=== PATIENT | female | born 1955 | race Caucasian/White ===

== ENCOUNTER 2017-12-06 15:49 | Observation (INO) | payer SELFPAY ==
[~2017-12-06] VITALS: Ht 165.1 cm; Wt 84.7 kg
[~2017-12-06 15:49] MED LIST: ASPI81TA82 PO; ENAL10TA7 PO; FIORINAL2 PO; METO25 PO; OMEP40CA; SUMA20SP; [UNRECOGNIZED DRUG - CODE]
[2017-12-06 17:15] VITALS: BP 150/96; PULSE 98; RESP 16; O2SAT 99
--- NOTE | 2017-12-06 17:22 | PD ---
HPI Chief Complaint: Chest Pain Time Seen by Provider: 17:19 Travel History International Travel<30 days: No Contact w/Intl Traveler<30days: No Traveled to known affect area: No History of Present Illness HPI 62-year-old female patient with history of hypertension, gastroesophageal reflux , presents to the ER today for 2 days history of substernal chest discomfort which she currently rates it a 2 out of 10, states that she feels like there is a fullness there, feels like she is going to burp. However, she denies any nausea, vomiting, diarrhea, or any other symptoms. She states that she had her blood pressure checked and was 200 systolic. She does not know of any exacerbating or relieving factors. She denies being more stressed than usual. Modifying Factors: None Associated Signs & Symptoms: Chest discomfort and elevated blood pressure Risk Factors: History of hypertension PFSH Social History Tobacco Use: No Allergies-Medications (Allergen,Severity, Reaction): Coded Allergies: No Known Allergies (Verified Adverse Reaction, Unknown, 12/06/17) Reported Meds & Prescriptions Reported Meds & Active Scripts Active Reported Fish Oil 1000 mg ([place]-3 Fatty Acids) 300 Mg-1,000 Mg Cap 1,000 Mg PO BID Amitriptyline (Amitriptyline HCl) 50 Mg Tab 50 Mg PO HS Omeprazole 20 Mg Tab 20 Mg PO DAILY Aspirin Adult Low Strength (Aspirin) 81 Mg Tabdr 81 Mg PO DAILY Lisinopril 20 Mg Tab 20 Mg PO DAILY Review of Systems Except as stated in HPI: all other systems reviewed are Neg Physical Exam Narrative GENERAL: Well-developed elderly female patient currently in mild distress. Awake and oriented 3. Appears anxious. SKIN: Focused skin assessment warm/dry. HEAD: Atraumatic. Normocephalic. EYES: Pupils equal and round. No scleral icterus. No injection or drainage. ENT: No nasal bleeding or discharge. Mucous membranes pink and moist. NECK: Trachea midline. No JVD. CARDIOVASCULAR: Regular rate and rhythm. No murmur appreciated. RESPIRATORY: No accessory muscle use. Clear to auscultation. Breath sounds equal bilaterally. GASTROINTESTINAL: Abdomen soft, non-tender, nondistended. Hepatic and splenic margins not palpable. MUSCULOSKELETAL: No obvious deformities. No clubbing. No cyanosis. No edema. NEUROLOGICAL: Awake and alert. No obvious cranial nerve deficits. Motor grossly within normal limits. Normal speech. PSYCHIATRIC: Appropriate mood and affect; insight and judgment normal. Data Data Last Documented VS Vital Signs Date Time Temp Pulse Resp B/P (MAP) Pulse Ox O2 Delivery O2 Flow Rate FiO2 12/06/17 17:36 98 16 133/64 (87) 130/66 (87) 12/06/17 17:33 100 Nasal Cannula 2.00 Orders Orders Electrocardiogram (12/06/17 17:19) Ckmb (Isoenzyme) Profile (12/06/17 17:19) Complete Blood Count With Diff (12/06/17 17:19) Comprehensive Metabolic Panel (12/06/17 17:19) Magnesium (Mg) (12/06/17:19) Prothrombin Time / Inr (Pt) (12/06/17:19) Act Partial Throm Time (Ptt) (12/06/17:19) Troponin I (12/06/17:19) Lipase (12/06/17 17:19) Ecg Monitoring (12/06/17:19) Bilateral Bp Monitoring (12/06/17:19) Iv Access Insert/Monitor (12/06/17 17:19) Oximetry (12/06/17 17:19) Oxygen Administration (12/06/17 17:19) Sodium Chloride 0.9% Flush (Ns Flush) (12/06/17 17:30) Chest, Pa & Lat (12/06/17 17:19) Labs Laboratory Tests Test 12/06/17 17:20 White Blood Count 13.1 TH/MM3 Red Blood Count 4.55 MIL/MM3 Hemoglobin 13.9 GM/DL Hematocrit 40.9 % Mean Corpuscular Volume 89.9 FL Mean Corpuscular Hemoglobin 30.6 PG Mean Corpuscular Hemoglobin Concent 34.0 % Red Cell Distribution Width 12.7 % Platelet Count 295 TH/MM3 Mean Platelet Volume 6.8 FL Neutrophils (%) (Auto) 85.1 % Lymphocytes (%) (Auto) 11.3 % Monocytes (%) (Auto) 2.9 % Eosinophils (%) (Auto) 0.3 % Basophils (%) (Auto) 0.4 % Neutrophils # (Auto) 11.2 TH/MM3 Lymphocytes # (Auto) 1.5 TH/MM3 Monocytes # (Auto) 0.4 TH/MM3 Eosinophils # (Auto) 0.0 TH/MM3 Basophils # (Auto) 0.0 TH/MM3 CBC Comment DIFF FINAL Differential Comment Prothrombin Time 10.7 SEC Prothromb Time International Ratio 1.1 RATIO Activated Partial Thromboplast Time 25.1 SEC Blood Urea Nitrogen 10 MG/DL Creatinine 1.06 MG/DL Random Glucose 114 MG/DL Total Protein 7.7 GM/DL Albumin 3.9 GM/DL Calcium Level 9.0 MG/DL Magnesium Level 2.0 MG/DL Alkaline Phosphatase 74 U/L Aspartate Amino Transf (AST/SGOT) 66 U/L Alanine Aminotransferase (ALT/SGPT) 127 U/L Total Bilirubin 0.3 MG/DL Sodium Level 138 MEQ/L Potassium Level 3.8 MEQ/L Chloride Level 102 MEQ/L Carbon Dioxide Level 24.4 MEQ/L Anion Gap 12 MEQ/L Estimat Glomerular Filtration Rate 53 ML/MIN Total Creatine Kinase 86 U/L Troponin I LESS THAN 0.02 NG/ML Lipase 101 U/L MDM Medical Decision Making Medical Screen Exam Complete: Yes Emergency Medical Condition: Yes Medical Record Reviewed: Yes Interpretation(s) EKG shows normal sinus rhythm at a rate of 99 bpm. No signs of acute ST elevations. There is nonspecific T-wave depressions notable in the inferior leads. Laboratory Tests Test 12/06/17 17:20 White Blood Count 13.1 TH/MM3 (4.0-11.0) Mean Platelet Volume 6.8 FL (7.0-11.0) Neutrophils (%) (Auto) 85.1 % (16.0-70.0) Neutrophils # (Auto) 11.2 TH/MM3 (1.8-7.7) Creatinine 1.06 MG/DL (0.50-1.00) Random Glucose 114 MG/DL (74-106) Aspartate Amino Transf (AST/SGOT) 66 U/L (15-37) Alanine Aminotransferase (ALT/SGPT) 127 U/L (10-53) Estimat Glomerular Filtration Rate 53 ML/MIN (>89) Troponin I LESS THAN 0.02 NG/ML Last 24 hours Impressions Chest X-Ray 12/06/17 7906 Signed Impressions: Service Date/Time: Wednesday, December 06, 2017 17:53 - CONCLUSION: 1. No acute findings. No effusion or pneumothorax. Cristian Jackson MD Differential Diagnosis Chest pains: Hypertensive urgency versus ACS versus dysrhythmias versus anxiety attack versus gastritis Narrative Course Cardiac enzymes are negative. EKG did not show any signs of acute dysrhythmias or ST elevations or depressions. Chest x-ray was fairly unremarkable. Vital signs are stable in the ER. My plan would be to admit her for further evaluation and a chest pain center. Diagnosis Primary Impression: Chest pain Admitting Information Admitting Physician Requests: Admit Quinn Bui MD Dec 06, 2017 17:22
[2017-12-06 17:29] VITALS: BP 150/96; PULSE 98; RESP 16; O2SAT 100
[2017-12-06] MEDS ORDERED: SODIUM CHLORIDE 0.9% FLUSH 10 ML FLUSH IVF PRN (17:30)
[2017-12-06 17:33] VITALS: BP 150/96; PULSE 98; RESP 16; O2SAT 99
[2017-12-06 17:36] VITALS: BP_SYST 130; BP_SYST 133; BP_DIAS 64; BP_DIAS 66; PULSE 98; RESP 16
[2017-12-06 17:49] LABS: AUTOMATED NEUTROPHIL # 11.2 TH/MM3 (1.8-7.7); BASOPHIL % 0.4 % (0.0-2.0); EOSINOPHIL % 0.3 % (0.0-4.0); HEMATOCRIT 40.9 % (35.0-46.0); HEMOGLOBIN 13.9 GM/DL (11.6-15.3); LYMPH % 11.3 % (9.0-44.0); LYMPHOCYTE # 1.5 TH/MM3 (1.0-4.8); MEAN CELL VOLUME 89.9 FL (80.0-100.0); MEAN CORPUSCULAR HEMOGLOBIN 30.6 PG (27.0-34.0); MEAN PLATELET VOLUME 6.8 FL (7.0-11.0); MONO % 2.9 % (0.0-8.0); MONOCYTE # 0.4 TH/MM3 (0-0.9); NEUT % 85.1 % (16.0-70.0); PLATELET COUNT 295 TH/MM3 (150-450); RED BLOOD COUNT 4.55 MIL/MM3 (4.00-5.30); RED CELL DISTRIBUTION WIDTH 12.7 % (11.6-17.2); WHITE BLOOD COUNT 13.1 TH/MM3 (4.0-11.0)
[2017-12-06 17:58] LABS: INTERNATIONAL NORMALIZED RATIO 1.1 RATIO; PROTHROMBIN TIME - PATIENT 10.7 SEC (9.8-11.6)
[2017-12-06 18:12] LABS: ALBUMIN 3.9 GM/DL (3.4-5.0); AST (GOT) 66 U/L (15-37); BICARBONATE 24.4 MEQ/L (21.0-32.0); BLOOD UREA NITROGEN 10 MG/DL (7-18); CHLORIDE 102 MEQ/L (98-107); CREATININE 1.06 MG/DL (0.50-1.00); GLOMERULAR FILTRATION RATE 53 ML/MIN (>89); GLUCOSE,RANDOM 114 MG/DL (74-106); SODIUM (NA) 138 MEQ/L (136-145)
--- NOTE | 2017-12-06 18:17 | RADRPT ---
EXAM DATE/TIME: 12/06/2017 17:53 [facility] COMPARISON: No previous studies available for comparison. INDICATIONS : Short of breath. MEDICAL HISTORY : None. SURGICAL HISTORY : None. ENCOUNTER: Initial ACUITY: 1 day PAIN SCORE: 0/10 LOCATION: Bilateral chest FINDINGS: PA and lateral views of the chest demonstrate the lungs to be symmetrically aerated without evidence of mass, infiltrate or effusion. The cardiomediastinal contours are unremarkable. Osseous structure s are intact. CONCLUSION: 1. No acute findings. No effusion or pneumothorax. Cristian Jackson MD on December 06, 2017 at 18:13 Board Certified Radiologist. This report was verified electronically.
[2017-12-06 18:18] LABS: ALKALINE PHOSPHATASE 74 U/L (45-117); ALT (GPT) 127 U/L (10-53); TOTAL BILIRUBIN ADULT 0.3 MG/DL (0.2-1.0); TOTAL PROTEIN 7.7 GM/DL (6.4-8.2); TROPONIN I LESS THAN 0.02 NG/ML (0.02-0.05)
[2017-12-06] MEDS ORDERED: OMEP20TA93 PO (18:34)
[2017-12-06] MEDS ORDERED: FISH100020 PO (18:34)
[2017-12-06] MEDS ORDERED: AMIT50TA3 PO (18:34)
[2017-12-06] MEDS ORDERED: LISI-515 PO (18:34)
[2017-12-06] MEDS ORDERED: ASPI81TA16 PO (18:34)
[2017-12-06] MEDS ORDERED: IOHEXOL 350 MG/ML 100 ML BTL (for Cath Lab) OTHER ONE (18:36)
[2017-12-06] MEDS ORDERED: SODIUM CHLORIDE 0.9% FLUSH 10 ML FLUSH IV FLUSH PRN (18:45)
[2017-12-06 21:39] VITALS: BP 131/81; PULSE 90; RESP 18; TEMP 97.9; O2SAT 93
[2017-12-06 21:56] VITALS: PULSE 88
[2017-12-06 22:10] LABS: TROPONIN I LESS THAN 0.02 NG/ML (0.02-0.05)
[2017-12-06] MEDS: SODIUM CHLORIDE 0.9% FLUSH 10 ML FLUSH IV FLUSH SCH (23:26)
[2017-12-07] VITALS (7 sets, daily range): BP systolic 108–155; BP diastolic 69–84; PULSE 66–86; RESP 18; TEMP 97.6–98.4; O2SAT 95–99
[2017-12-07 00:24] LABS: TROPONIN I LESS THAN 0.02 NG/ML (0.02-0.05)
[2017-12-07] MEDS ORDERED: AMITRIPTYLINE HCL 50 MG TAB PO SCH (01:00)
[2017-12-07] MEDS ORDERED: PRAVASTATIN SOD 40 MG TAB PO SCH (09:00)
--- NOTE | 2017-12-07 09:08 | HHI.HP ---
HPI Primary Care Physician Duke Hernandez MD Chief Complaint Chest pain History of Present Illness This is a 62-year-old female that presents to ED complaining of 4 days of intermittent burning chest discomfort she points to the substernal/epigastric region. First episode was 4 days ago. It woke her from her sleep at 1 in the morning. She took a Gas-X, did a lot of belching and then the discomfort resolved within 20 minutes. 2 days ago she has felt very tired and achy. Yesterday around 1:00 in the afternoon he developed a dull ache in the center of her chest and felt very hot and sweaty. Checked her blood pressure was 203/ 118. She went to her PCP office which is Dr. Hernandez who advised her to come to the ED. She noticed that if she drinks water the symptoms were improved. She has history of heartburn but states this does not really feel like her typical heartburn. Cannot recall ever having a stress test. Denies recent illness. Denies fevers or chills. Review of Systems General: Patient denies fevers, chills, and recent travel. HEENT: Patient denies headache, sore throat, difficulty swallowing. Cardiovascular: Has the chest discomfort as mentioned above. Denies sensation of heart beating rapidly or irregularly. No syncope. She states she broke out into a sweat yesterday. Respiratory: Denies shortness of breath or inspirational chest discomfort. Denies coughing wheezing or hemoptysis. GI: Patient denies nausea, vomiting, diarrhea, abdominal pain, bloody stools. She was belching. Musculoskeletal: Patient denies joint pain or edema. Denies calf pain or edema. Neurovascular: Patient denies numbness, tingling, weakness in extremities. Denies headache. Endocrine: Denies polyuria and polydipsia. Hematologic: Denies easy bruising. Skin: Denies rash or itching. Past Family Social History Allergies: Coded Allergies: No Known Allergies (Verified Allergy, Unknown, 12/07/17) Past Medical History Hypertension GERD and anxiety. Past Surgical History Noncontributory. Reported Medications Reported Meds & Active Scripts Active Reported Fish Oil 1000 mg ([place]-3 Fatty Acids) 300 Mg-1,000 Mg Cap 1,000 Mg PO BID Amitriptyline (Amitriptyline HCl) 50 Mg Tab 50 Mg PO HS Omeprazole 20 Mg Tab 20 Mg PO DAILY Aspirin Adult Low Strength (Aspirin) 81 Mg Tabdr 81 Mg PO DAILY Lisinopril 20 Mg Tab 20 Mg PO DAILY Active Ordered Medications Current Medications Medications (Trade) Dose Ordered Sig/Edgar Route Start Time Stop Time Status Last Admin (NS Flush) 2 ml UNSCH PRN IV FLUSH 12/06/17 18:45 (NS Flush) 2 ml BID IV FLUSH 12/06/17 21:00 12/06/17 23:26 (Prinivil) 20 mg DAILY PO 12/07/17 09:00 (Protonix) 20 mg DAILY PO 12/07/17 09:00 Family History Denies family history of CAD. Social History Quit smoking 1990. States she smoked about one third pack of cigarettes daily for 2 years. Denies alcohol or illicit drug use. Physical Exam Vital Signs Vital Signs Date Time Temp Pulse Resp B/P (MAP) Pulse Ox O2 Delivery O2 Flow Rate FiO2 12/07/17 08:45 98.1 82 18 131/84 (100) 95 12/07/17 04:47 98.4 18 110/71 (84) 99 12/07/17 00:01 78 12/06/17 21:56 88 12/06/17 21:39 97.9 90 18 131/81 (98) 93 12/06/17 18:48 Nasal Cannula 2.00 12/06/17 17:36 98 16 133/64 (87) 130/66 (87) 12/06/17 17:33 100 Nasal Cannula 2.00 12/06/17 17:33 98 16 150/96 (114) 99 Nasal Cannula 2.00 12/06/17 17:29 98 16 100 Nasal Cannula 2.00 12/06/17 17:29 98 16 150/96 (114) 100 Nasal Cannula 2.00 12/06/17 17:18 99 Nasal Cannula 2.00 12/06/17 17:15 98 16 150/96 (114) 99 Physical Exam GENERAL: This is a well-nourished, well-developed patient, in no apparent distress. Patient speaks in clear complete sentences. Patient is pleasant. HEENT: Head is atraumatic and normocephalic. Neck is supple without lymphadenopathy and trachea is midline. No JVD or carotid bruits. CARDIOVASCULAR: Regular rate and rhythm without murmurs, gallops, or rubs. RESPIRATORY: Clear to auscultation. Breath sounds equal bilaterally. No wheezes , rales, or rhonchi. Chest wall is nontender. No use of accessory muscles. GASTROINTESTINAL: Abdomen is nontender, nondistended. Abdomen soft. No obvious pulsatile mass or bruit. No CVA tenderness. Strong femoral pulses bilaterally. Normal bowel sounds in all quadrants. MUSCULOSKELETAL: Patient is moving upper and lower extremities freely. No calf tenderness or edema, no Homans sign. Strong pulses in upper and lower extremities. NEUROLOGICAL: Patient is alert and oriented. Cranial nerves 2-12 are grossly intact. No focal deficits and speech is clear. SKIN: No rash and turgor is normal. Laboratory Laboratory Tests Test 12/06/17 17:20 12/06/17 21:00 12/06/17 23:20 White Blood Count 13.1 Red Blood Count 4.55 Hemoglobin 13.9 Hematocrit 40.9 Mean Corpuscular Volume 89.9 Mean Corpuscular Hemoglobin 30.6 Mean Corpuscular Hemoglobin Concent 34.0 Red Cell Distribution Width 12.7 Platelet Count 295 Mean Platelet Volume 6.8 Neutrophils (%) (Auto) 85.1 Lymphocytes (%) (Auto) 11.3 Monocytes (%) (Auto) 2.9 Eosinophils (%) (Auto) 0.3 Basophils (%) (Auto) 0.4 Neutrophils # (Auto) 11.2 Lymphocytes # (Auto) 1.5 Monocytes # (Auto) 0.4 Eosinophils # (Auto) 0.0 Basophils # (Auto) 0.0 CBC Comment DIFF FINAL Differential Comment Prothrombin Time 10.7 Prothromb Time International Ratio 1.1 Activated Partial Thromboplast Time 25.1 Blood Urea Nitrogen 10 Creatinine 1.06 Random Glucose 114 Total Protein 7.7 Albumin 3.9 Calcium Level 9.0 Magnesium Level 2.0 Alkaline Phosphatase 74 Aspartate Amino Transf (AST/SGOT) 66 Alanine Aminotransferase (ALT/SGPT) 127 Total Bilirubin 0.3 Sodium Level 138 Potassium Level 3.8 Chloride Level 102 Carbon Dioxide Level 24.4 Anion Gap 12 Estimat Glomerular Filtration Rate 53 Total Creatine Kinase 86 95 90 Troponin I LESS THAN 0.02 LESS THAN 0.02 LESS THAN 0.02 Lipase 101 Result Diagram: 12/06/17 1720 12/06/17 1720 Imaging Last 48 hours Impressions Chest X-Ray 12/06/17 1719 Signed Impressions: Service Date/Time: Wednesday, December 06, 2017 17:53 - CONCLUSION: 1. No acute findings. No effusion or pneumothorax. Cristian Jackson MD Course EKGs a sinus rhythm with inferior and anterolateral T-wave changes. No significant ST segment depressions or elevations. Caprini VTE Risk Assessment Caprini VTE Risk Assessment: Mod/High Risk (score >= 2) Caprini Risk Assessment Model Point Value = 1 Point Value = 2 Point Value = 3 Point Value = 5 Age 41-60 Minor surgery BMI > 25 kg/m2 Swollen legs Varicose veins or History of unexplained or recurrent spontaneous Oral contraceptives or hormone replacement Sepsis (< 1 month) Serious lung disease, including pneumonia (< 1 month) Abnormal pulmonary function Acute myocardial infarction Congestive heart failure (< 1 month) History of inflammatory bowel disease Medical patient at bed rest Age 61-74 Arthroscopic surgery Major open surgery (> 45 min) Laparoscopic surgery (> 45 min) Malignancy Confined to bed (> 72 hours) Immobilizing plaster cast Central venous access Age >= 75 History of VTE Family history of VTE Factor V Leiden Prothrombin [id number] Lupus anticoagulant Anticardiolipin antibodies Elevated serum homocysteine Heparin-induced thrombocytopenia Other congenital or acquired thrombophilia Stroke (< 1 month) Elective arthroplasty Hip, pelvis, or leg fracture Acute spinal cord injury (< 1 month) Prophylaxis Regimen Total Risk Factor Score Risk Level Prophylaxis Regimen 0-1 Low Early ambulation 2 Moderate Order ONE of the following: *Sequential Compression Device (SCD) *Heparin 5000 units SQ BID 3-4 Higher Order ONE of the following medications: *Heparin 5000 units SQ TID *Enoxaparin/Lovenox 40 mg SQ daily (WT < 150 kg, CrCl > 30 mL/min) *Enoxaparin/Lovenox 30 mg SQ daily (WT < 150 kg, CrCl > 10-29 mL/min) *Enoxaparin/Lovenox 30 mg SQ BID (WT < 150 kg, CrCl > 30 mL/min) AND/OR *Sequential Compression Device (SCD) 5 or more Highest Order ONE of the following medications: *Heparin 5000 units SQ TID (Preferred with Epidurals) *Enoxaparin/Lovenox 40 mg SQ daily (WT < 150 kg, CrCl > 30 mL/min) *Enoxaparin/Lovenox 30 mg SQ daily (WT < 150 kg, CrCl > 10-29 mL/min) *Enoxaparin/Lovenox 30 mg SQ BID (WT < 150 kg, CrCl > 30 mL/min) AND *Sequential Compression Device (SCD) Assessment and Plan Assessment and Plan * Chest pain: Her symptoms appear atypical. She has had serial cardiac enzymes and EKGs for ruling out purposes. She was seen by Dr. Mj Chakraborty of cardiology and the chest pain center and will undergo a Aubrey protocol ETT. She will be discharged home if her stress test is nonischemic with instructions to follow-up with PCP. Return to ED for interval issues. * Hypertension: Resume medication. Her blood pressure has improved since being in the hospital. * GERD: Continue medication. Patient is stable at this time. She is agreeable to this plan. Garett Garibay Dec 07, 2017 09:08
[2017-12-07] MEDS: PANTOPRAZOLE SOD 20 MG DELAYED RELEASE TAB PO SCH (11:50)
[2017-12-07] MEDS: LISINOPRIL 20 MG TAB PO SCH (11:50)
[2017-12-07] MEDS: SODIUM CHLORIDE 0.9% FLUSH 10 ML FLUSH IV FLUSH SCH ×2 (11:50→23:46)
--- NOTE | 2017-12-07 11:58 | EKG ---
Date Performed: 12/07/2017 Time Performed: 01:16:15 PTAGE: 62 years EKG: Sinus rhythm MODERATE T-WAVE ABNORMALITY, CONSIDER ANTERIOR ISCHEMIA ABNORMAL ECG PREVIOUS TRACING : 12/06/2017 21.47 Since previous tracing, no significant change noted DOCTOR: Mj Chakraborty Interpretating Date/Time 12/07/2017 11:57:17
--- NOTE | 2017-12-07 11:58 | EKG ---
Date Performed: 12/06/2017 Time Performed: 21:47:38 PTAGE: 62 years EKG: Sinus rhythm PROBABLE INFERIOR MYOCARDIAL INFARCTION MODERATE T-WAVE ABNORMALITY, CONSIDER ANTERIOR ISCHEMIA ABNO RMAL ECG PREVIOUS TRACING : 12/06/2017 17.12 Since previous tracing, no significant change noted DOCTOR: Mj Chakraborty Interpretating Date/Time 12/07/2017 11:57:42
--- NOTE | 2017-12-07 12:00 | EKG ---
Date Performed: 12/06/2017 Time Performed: 17:12:16 PTAGE: 62 years EKG: Sinus rhythm ABNORMAL ECG PREVIOUS TRACING : 10/10/2007 07.51 Since previous tracing, no significant change noted DOCTOR: Mj Chakraborty Interpretating Date/Time 12/07/2017 11:59:05
--- NOTE | 2017-12-07 12:19 | RADRPT ---
EXAM DATE/TIME: 12/07/2017 10:04 [facility] COMPARISON: No previous studies available for comparison. INDICATIONS : Substernal chest pain with diaphoresis. Angina DOSE: 25.9 mCi Tc99m Myoview at stress 8.8 mCi Tc99m Myoview at rest REST HEART RATE: 117 BPM TARGET HEART RATE: 135 BPM MAX HEART RATE: 145 BPM REST BLOOD PRESSURE: 150/82 mmHg MAX BLOOD PRESSURE: 164/88 mmHg EJECTION FRACTION: > 70% MEDICAL HISTORY : Hypertension. Gastroesophageal reflux disease. SURGICAL HISTORY : Hysterectomy. Lumpectomy. ENCOUNTER: Initial ACUITY: 3 days PAIN SCALE: 6/10 LOCATION: Substernal chest TECHNIQUE: The patient underwent upright treadmill exercise in the chest pain center. Continuous ECG tracing wa s monitored during stress. Gated SPECT imaging was performed after stress, and conventional SPECT im aging was performed at rest. The examination was performed on a SPECT/CT scanner, both attenuation-c orrected and non-corrected datasets were reviewed. FINDINGS: DISTRIBUTION: The maximum perfused segment at stress is in the anterior wall. PERFUSION STUDY: Small area of mildly reversible decreased perfusion in the lateral apical region. GATED STUDY: There is intact wall motion and thickening without hypokinetic or dyskinetic segments. CONCLUSION: Small lateral apical perfusion abnormality with possible mild redistribution. RISK CATEGORY: Low (<1% Annual Mortality Rate) Maged Anaya MD on December 07, 2017 at 12:14 Board Certified Radiologist. This report was verified electronically.
[2017-12-07] MEDS ORDERED: SODIUM CHLOR 0.9% 1000 ML INJ 1,000 ML IV SCH (12:56)
[2017-12-07] MEDS: METOPROLOL TARTRATE 25 MG TAB PO SCH ×2 (13:26→23:46)
[2017-12-07] MEDS: ASPIRIN 325 MG TAB PO SCH (15:08)
[2017-12-07] MEDS ORDERED: MIDAZOLAM HCL 5 MG/5 ML VIAL ONE (16:44)
[2017-12-07] MEDS ORDERED: HEPARIN-NS/PF FLUSH BAG 2,000 ML IV FLUSH ONE (16:44)
--- NOTE | 2017-12-07 16:52 | TR ---
Date Performed: 12/07/2017 Time Performed: 10:45:42 DOCTOR: Mj Chakraborty DRUG LIST: CLINICAL HISTORY: REASON FOR TEST: REASON FOR ENDING: OBSERVATION: CONCLUSION: NUC ETT JESUS PROTOCOL. NO CP. PATIENT WAS SOB.Maximum AT=614 % Max HR Achieved=91 .0% Maximum SE=213/82 COMMENTS: Patient exercised using the Jesus protocol. No electrocardiographic changes were seen to suggest ischemia. Hemodynamic response to exercise was normal. No significant arrhythmia was prese nt.
--- NOTE | 2017-12-07 17:34 | CATHPROC ---
[facility] HIS Report Study Information Study Number Admission Scheduled Start Study Start [id number] Dec 06 2017 6:35PM 12/07/2017 Dec 07 2017 4:30PM Study Type Marana Service Left/Possible PCI Cardiac Catheterization Admit Source Facility Department Emergency department [facility] - Director Marketing Analytics Physician and Clinical Staff Initial Ashlyn Evans Nut Roaster Ilene Patten,RN Other Viri Medina RCIS TECH2 Recorder Adelaida Henry RT(R) (BS) Scrub Ronaldo Pierre RCIS(BS) Procedures Performed Procedure Location (Site) Vessel Name Angiogram LV LV Ventricle Coronary Angiograms LCA Left Coronary Coronary Angiograms RCA Right Coronary L Heart Cath Equipment Time State'S Attorney Description Size Mfg Part Number Used/Scraped TRANSDUCER, FUNMILAYO [id number] 16:38 [employer] * Used W/STOCKCOCK *[id number] 16:50 AirWatch AR MOD CATHETER FR 5 [id number] Used [id number] *[id number] *[id number] 16:38 MEDLINE [employer] PACK, CCL CUSTOM * Used *[id number] 16:38 INBEP PACER PEN, SKIN DUAL W/ RULER * Used *[id number] 16:38 [employer] WIRE, 3MMJ .035 180CM 180CM Used *[id number] PROBE COVER, STERILE [id number] 16:38 [employer] * Used ULTRASOUND W/ GEL *[id number] 16:38 NAMIC MANIFOLD, 4 PORT * Used *[id number] 16:38 NAMIC TUBING, HIGH PRESSURE 48" 48" Used *[id number] 16:38 NYCOMED OMNIPAQUE, 350 MG, 150ML 150ML [id number] Used [id number] 16:38 ARNETT MEDICAL BLANKET,WARM AIR CCL * Used *[id number] 16:38 TEREliassen GroupO MEDICAL SHEATH, FR5 TERUMO (10CM) FR 5 Used *[id number] Equipment Model, Serial, Lot Number and Expiration Data Description Model Number Serial Number Lot Number Expiration Date AR MOD CATHETER [id number] 09-27-2019 History: Current Medications Medication Dosage/Unit Route Frequency Last Date/Time Taken LISINOPRIL Beta Eun ASA History: Allergies Allergy Reaction No Known Allergies History: Risk Factors Family History of Hypertension Dyslipidemia Previous ND Previous Heart Failure Premature CAD Yes No No No No Prior Valve Prior PCI Prior CABG Surgery No No No Cerebrovascular Peripheral Artery Chronic Lung On Dialysis Diabetes Disease Disease Disease No No No No No History: Symptoms/Diagnosis Selection Items Chest pain History: Stress Tests Stress or Imaging Studies Performed Yes Standard Exercise Stress Test No Stress Echo No Stress Test SPECT Stress Test SPECT Result Stress Test SPECT Ischemia Risk/Extent Yes Positive Intermediate Stress Test CMR No Cardiac CTA Coronary Calcium Score No No History: Other Disease Selection Items Gerd History: Other Current Smoker Method Quit Packs a Day Years Used Pack Years No Cigarettes 27 Years Ago 1 2 2 Labs Hgb (g/dl) Hct (%) RBC (MIL/MM3) WBC (l/cumm) Platelets (thousands) 11.60-17.00 35.00-51.00 4.00-5.90 4.00-11.00 150.00-450.00 13.9 40.9 4.5 13.1 295 Glucose (mg/dl) BUN (mg/dl) Creatinine (mg/dl) BUN:Creatinine (1:x) 74.00-106.00 7.00-18.00 0.50-1.30 10.00-20.00 114 10 1.0 10 Na (meq/l) K (meq/l) CO2 (mmol/L) Ca (mg/dl) 136.00-145.00 3.50-5.10 21.00-32.00 8.50-10.10 138 3.8 24.4 9 PT (sec) PTT (sec) INR (PTT:PT) 9.80-11.60 24.30-30.10 0.90-1.10 10.7 25.1 1.1 Troponin I (ng/ml) CPK (u/l) CPK-MB (ng/ML) 0.02-0.05 26.00-308.00 0.50-3.60 0.02 90 Not Drawn Medication Medication Total Dose (Bolus/Oral) Medication Total Dosage/Unit 1% XYLOCAINE 20 mL FENTANYL 100 mcg VERSED 5 mg Medications (Bolus/Oral) Medication Time Given Dosage/Unit Administered By Reason VERSED 12/07/2017 4:48:17 PM 2 mg Ilene Patten 2 mg VERSED given in lab by Ilene Patten RN in Left Antecubital via Peripheral IV. FENTANYL 12/07/2017 4:49:26 PM 50 mcg Hesher, Ilene 50 mcg FENTANYL given in lab by Ilene Patten RN in Left Antecubital via Peripheral IV. VERSED 12/07/2017 4:51:51 PM 2 mg Hesher, Ilene 2 mg VERSED given in lab by Ilene Patten RN in Left Antecubital via Peripheral IV. VERSED 12/07/2017 4:55:14 PM 1 mg Hesher, Ilene 1 mg VERSED given in lab by Ilene Patten RN in Left Antecubital via Peripheral IV. FENTANYL 12/07/2017 4:56:42 PM 25 mcg Melissaher, Ilene 25 mcg FENTANYL given in lab by Ilene Patten RN in Left Antecubital via Peripheral IV. 1% XYLOCAINE 12/07/2017 5:03:29 PM 20 mL Ashlyn Collins 20 mL 1% XYLOCAINE given in lab by Ashlyn Collins in Right Groin via Subcutaneous. FENTANYL 12/07/2017 5:06:10 PM 25 mcg Melissaher, Ilene 25 mcg FENTANYL given in lab by Ilene Patten RN in Left Antecubital via Peripheral IV. Medication (Drip) Medication Time Given Dosage/Unit Concentration/Unit Diluent (ml) Solutio n IV Solutions 12/07/2017 4:38:33 PM 0 mL (IV) 1000 NaCl .9 Patient arrived on IV Solutions in Left Antecubital via Peripheral IV. Pump/Drip Flow = 125 ml/hr usi ng NaCl .9. Initial Case Assessment Cardiovascular HR Rhythm NIBP Chest Pain 87 reg 133/75 0 Edema Present Skin color Skin None Normal Warm Dry Circulatory - Right Pulses Dorsalis Pedis Femoral 1 1 Scale (0,1,2,3,4,d) Circulatory - Left Pulses Dorsalis Pedis Femoral 1 1 Scale (0,1,2,3,4,d) Circulatory - Lower Extremities Color Lower Right Color Lower Left Normal Normal Neurological State Oriented to time-place- Alert Moves all extremities person Respiration - General Respiration Rate SpO2 (%) (B/min) 12 99 Chronological Log Time Study Chronological Log 16:35:53 Patient arrived via Bed. 16:35:54 Patient Name, D.O.B, / Armband Verified By R.N. 16:35:59 Pre-op and post- op instructions given; patient acknowledges understanding of instructions. 16:37:25 Verbal Stimulation=2 Physical Stimulation=2 Airway=2 Respiration=2 TOTAL=8. (0=absent, 1=li mited, 2=present) 16:38:07 Presedation assessment performed by Director Marketing Analytics RN. 16:38:11 Patient has been NPO for More than 6Hrs. 16:38:12 Skin Breakdown none per pt 16:38:14 Elmer Prominences Protected 16:38:17 A # 18 IV was noted in the Antecubital (left). Grade = 0 16:38:33 Patient arrived on IV Solutions in Left Antecubital via Peripheral IV. Pump/Drip Flow = 125 ml/hr using NaCl .9. 16:46:50 History and physical on the chart or being dictated. Assessment: Initial Case, HR=87 BPM, Rhythm=reg, JSJE=901/75 mmhg, Chest Pain=0, Edema=None, Co gerri=Normal, Skin = Warm, Dry Right Pulses: Case Ped=1, Femoral=1 Left Pulses: Case Ped=1, Femoral=1 16:46:52 Lower Right Extremities: Color=Normal Lower Left Extremities: Color=Normal Neurological: State=Alert, Ox3, LANDRY Respiration: Resp=12 B/min, SpO2=99 % 16:46:54 Bilateral groins prepped with 2% chlorhexidine, and draped after a 3 minute waiting time. Vitals capture started with the following parameters, Patient=Adult, Interval=5 min, Initial Pr myoxvt=566 mmHg, 16:47:35 Deflation Rate=5 mmHg, Cuff placed on Right Arm 16:48:12 HR=84 bpm, MBKZ=797/75 mmhg, SpO2=98.0 %, Resp=23 B/min, Pain=0, Pavel=10, Trejo=2 16:48:17 2 mg VERSED given in lab by Ilene Patten RN in Left Antecubital via Peripheral IV. 16:48:55 paged 16:49:26 50 mcg FENTANYL given in lab by Ilene Patten, ARIANNE in Left Antecubital via Peripheral IV. 16:51:51 2 mg VERSED given in lab by Ilene Patten, ARIANNE in Left Antecubital via Peripheral IV. 16:51:57 Pressure channel 1 zeroed. 16:52:16 Reference ECG taken 16:53:11 HR=77 bpm, AOPO=984/72 mmhg, SpO2=97.0 %, Resp=26 B/min, Pain=0, Pavel=10, Trejo=2 16:53:38 MD arrived. 16:55:14 1 mg VERSED given in lab by Ilene Patten, ARIANNE in Left Antecubital via Peripheral IV. 16:56:42 25 mcg FENTANYL given in lab by Ilene Patten, ARIANNE in Left Antecubital via Peripheral IV. 16:58:12 HR=70 bpm, XTDB=945/57 mmhg, SpO2=97.0 %, Resp=16 B/min, Pain=0, Pavel=10, Trejo=2 Time Out. Correct patient, correct procedure, correct physician, power injector loaded with con trast with surgical team 17:02:53 present. Time Out Concurred by MD and individual staff in procedure. 17:03:09 HR=73 bpm, RLXH=222/56 mmhg, SpO2=97.0 %, Resp=15 B/min, Pain=0, Pavel=10, Trejo=2 17:03:27 Case Start 17:03:29 20 mL 1% XYLOCAINE given in lab by Ashlyn Collins in Right Groin via Subcutaneous. 17:05:29 Access site was Right Femoral Artery using ultrasound 17:05:42 A SHEATH, FR5 TERUMO (10CM) FR 5 was advanced into the Fem Art (right) using the Percutaneo us technique. A PIGTAIL ANG. INFINITI CATHETER FR 5 was advanced over a wire. OMNIPAQUE, 350 MG, 150ML 150ML was used 17:06:01 for injections. 17:06:10 25 mcg FENTANYL given in lab by Ilene Patten, ARIANNE in Left Antecubital via Peripheral IV. Recorded Pressure: LV, HR=67, Condition=Condition 1 17:07:22 (Left Ventricle) LV 91/7/13 17:08:08 HR=66 bpm, GVWU=142/57 mmhg, SpO2=97.0 %, Resp=18 B/min, Pain=0, Pavel=10, Trejo=2 17:08:12 The LV was injected at 10 cc/sec for a total of 30. OMNIPAQUE, 350 MG, 150ML 150ML used. Recorded Pressure: LV, Ao, HR=74, Condition=Condition 1 17:08:54 (Left Ventricle) LV 89/7/12, (Aorta) Ao 92/55/72 17:09:09 Catheter was removed A JL 4.0 INFINITI CATHETER FR 5 was advanced over a wire. OMNIPAQUE, 350 MG, 150ML 150ML was us ed for 17:09:10 injections. Recorded Pressure: Ao, HR=71, Condition=Condition 1 17:10:05 (Aorta) Ao 89/56/71 17:10:22 The LCA was injected and visualized at various angles. OMNIPAQUE, 350 MG, 150ML 150ML used . 17:12:30 Catheter was removed 17:12:44 A AR MOD CATHETER FR 5 was advanced over a wire. OMNIPAQUE, 350 MG, 150ML 150ML was used fo r injections. 17:13:12 HR=77 bpm, EWYR=164/59 mmhg, SpO2=97.0 %, Resp=18 B/min, Pain=0, Pavel=10, Trejo=2 17:14:13 The RCA was injected and visualized at various angles. OMNIPAQUE, 350 MG, 150ML 150ML use d. 17:14:39 Catheter was removed 17:14:42 Case End 17:15:16 An injection in the Fem Art (right) was made through the SHEATH, FR5 TERUMO (10CM) FR 5. 17:17:38 Catheter(s) removed without difficulty 17:17:44 No case complications noted. 17:17:53 Bedside Report will be given. 17:17:56 A Left Heart Cath was performed. 17:18:09 HR=84 bpm, OUBD=822/67 mmhg, SpO2=95.0 %, Resp=17 B/min, Pain=0, Pavel=10, Trejo=2 17:20:01 Sheath removed; pressure applied to access site. 17:23:10 HR=72 bpm, SGJR=511/63 mmhg, SpO2=98.0 %, Resp=18 B/min, Pain=0, Pavel=10, Trejo=2 17:28:07 HR=72 bpm, RIYK=183/68 mmhg, SpO2=98.0 %, Resp=16 B/min, Pain=0, Pavel=10, Trejo=2 17:33:10 HR=66 bpm, OXRT=288/69 mmhg, SpO2=97.0 %, Resp=14 B/min, Pain=0, Pavel=10, Trejo=2 17:33:42 Sterile dressing applied to site 17:36:50 Patient moved to stretcher End Study - Contrast Media Used In Study Contrast Total Opened (mL) Total Used (mL) Total Wasted (mL) Omnipaque 80 80 0 End Study - Maximum Contrast Load Max Contrast Load (mL) 435.9 End Study - Radiation Exposure Fluoro Time (minutes) 1.0 End Study - Sheaths Sheaths Pulled By Sheath Hold Time (min) Ronaldo Pierre End Study - Patient Disposition Complications Transferred To Interventional Outcome No Director Marketing Analytics Holding No attempt made
--- NOTE | 2017-12-07 17:49 | MB ---
cc: Ashlyn Collins MD DATE: 12/07/2017 HISTORY OF PRESENT ILLNESS: Ms. Foote is a 62-year-old white female presented with a 4-day history of substernal chest burning. She was awoken from sleep. She also had a lot of belching and fatigue. Yesterday afternoon she developed dull chest discomfort and diaphoresis. She felt hot. She was hypertensive. She saw Dr. Hernandez and was sent to the emergency room. She underwent adenosine myocardial perfusion study, which was positive for lateral ischemia. PAST MEDICAL HISTORY: Hypertension, gastroesophageal reflux disease, anxiety. No history of diabetes mellitus, dyslipidemia, coronary artery disease, CVA. MEDICATIONS: 1. Fish oil. 2. Amitriptyline. 3. Omeprazole. 4. Baby aspirin. 5. Lisinopril. ALLERGIES: NONE. SOCIAL HISTORY: The patient quit smoking in 1990. She does not drink alcohol. FAMILY HISTORY: Negative for disease. REVIEW OF SYSTEMS: Otherwise negative. PHYSICAL EXAMINATION: VITAL SIGNS: Blood pressure 116/74, pulse 69 and regular. HEENT: Negative. NECK: Two plus carotid upstrokes. No bruit. LUNGS: Clear. HEART: Regular with no murmur, gallop or rub. ABDOMEN: Soft, obese. No bruits. EXTREMITIES: Without edema. Two plus distal pulses. NEUROLOGIC: Grossly nonfocal. LABORATORY DATA: EKG was reviewed and showed a normal sinus rhythm and mild nonspecific ST-T changes. LABORATORY DATA: Hemoglobin 13.9, potassium 3.8, creatinine 1.1. Troponin negative x3. AST of 63, ALT of 127. DIAGNOSES: 1. Unstable angina. 2. Abnormal nuclear myocardial perfusion study. 3. Hypertension. 4. Obesity. 5. Gastroesophageal reflux disease. 6. Anxiety. DISPOSITION: Ms. Foote will undergo cardiac catheterization and coronary intervention if necessary today. She understands the risks and benefits, and wishes to proceed. I recommend to continue and titrate aggressive modification of her cardiac risk factors. Ashlyn Collins MD OQ/TRIP , 05:29 PM , 05:47 PM [facility]
[2017-12-07] MEDS ORDERED: AMITRIPTYLINE HCL 50 MG TAB PO ONE (23:03)
[2017-12-08] VITALS (10 sets, daily range): BP systolic 88–96; BP diastolic 63–64; PULSE 58–82; RESP 16; TEMP 97.5–98.4; O2SAT 96–97
[2017-12-08 07:20] LABS: CHOLESTEROL/ HDL RATIO 6.77 RATIO; HDL CHOLESTEROL 36.6 MG/DL (40.0-60.0)
[2017-12-08] MEDS: METOPROLOL TARTRATE 25 MG TAB PO SCH (09:34)
[2017-12-08] MEDS: PANTOPRAZOLE SOD 20 MG DELAYED RELEASE TAB PO SCH (09:35)
[2017-12-08] MEDS: SODIUM CHLORIDE 0.9% FLUSH 10 ML FLUSH IV FLUSH SCH (09:36)
[2017-12-08] MEDS: ASPIRIN 325 MG TAB PO SCH (09:36)
[2017-12-08] MEDS: LISINOPRIL 20 MG TAB PO SCH (09:36)
[2017-12-08] MEDS ORDERED: LIPI10TA PO (09:50)
[2017-12-08] MEDS ORDERED: METO25TA3 PO (09:50)
[2017-12-08] MEDS ORDERED: ASA325 PO (09:50)
--- NOTE | 2017-12-08 09:53 | HHI.PR ---
Subjective Remarks Follow-up unstable angina 12/08/17-patient seen and examined him a she had a clean left heart catheterization yesterday. Denies any chest pain this morning and ready for discharge home Objective Vitals Vital Signs Date Time Temp Pulse Resp B/P (MAP) Pulse Ox O2 Delivery O2 Flow Rate FiO2 12/08/17 07:16 97.5 77 16 96/64 (75) 96 12/08/17 05:00 59 12/08/17 04:00 61 12/08/17 03:00 98.4 72 16 88/63 (71) 97 12/08/17 03:00 72 12/08/17 02:00 67 12/08/17 01:00 62 12/07/17 21:15 98.4 71 18 108/69 (82) 96 12/07/17 17:41 94 Room Air 12/07/17 15:57 98.0 69 18 116/74 (88) 95 12/07/17 11:56 97.6 86 18 155/76 (102) 96 I/O 12/07/17 12/07/17 12/07/17 12/08/17 12/08/17 12/08/17 07:00 15:00 23:00 07:00 15:00 23:00 Intake Total 480 ml Balance 480 ml Intake Oral 480 ml # Voids 4 Result Diagram: 12/06/17 1720 12/06/17 1720 Imaging Last Impressions Myocardial Perfusion Scan Nuc Med 12/07/17 0000 Signed Impressions: Service Date/Time: Thursday, December 07, 2017 10:04 - CONCLUSION: Small lateral apical perfusion abnormality with possible mild redistribution. RISK CATEGORY : Low (<1%% Annual Mortality Rate) Maged Anaya MD Chest X-Ray 12/06/17 1719 Signed Impressions: Service Date/Time: Wednesday, December 06, 2017 17:53 - CONCLUSION: 1. No acute findings. No effusion or pneumothorax. Cristian Jackson MD Objective Remarks GENERAL: NAD SKIN: Warm and dry. HEAD: Normocephalic. EYES: No scleral icterus. No injection or drainage. NECK: Supple, trachea midline. No JVD or lymphadenopathy. CARDIOVASCULAR: Regular rate and rhythm without murmurs, gallops, or rubs. RESPIRATORY: Breath sounds equal bilaterally. No accessory muscle use. GASTROINTESTINAL: Abdomen soft, non-tender, nondistended. MUSCULOSKELETAL: No cyanosis, or edema. BACK: Nontender without obvious deformity. No CVA tenderness. A/P Problem List: (1) Unstable angina ICD Code: I20.0 - Unstable angina Assessment and Plan 62 years old female with Unstable Angina Cardiology was consulted secondary to abnormal nuclear stress test Patient had a clean left heart catheterization 12/07/17 by cardiology Currently on beta melida, aspirin and add statin Hypertension Currently on beta melida Anxiety/depression Continue outpatient medications Patient is stable for discharge Discharge Planning Discharge patient to home Condition on discharge: Improved Regular Diet as tolerated Ad Jessica activity Rx written:see EMR Follow-up with primary care physician in 1 week cardiology 1-2 weeks Wally Agustin MD Dec 08, 2017 09:53
--- NOTE | 2017-12-08 13:17 | PD.CARD.PN ---
Subjective Subjective Remarks No CP or SOB, feels better Objective Vital Signs / I&O Vital Signs Date Time Temp Pulse Resp B/P (MAP) Pulse Ox O2 Delivery O2 Flow Rate FiO2 12/08/17 10:02 77 12/08/17 09:00 58 12/08/17 08:00 82 12/08/17 07:16 97.5 77 16 96/64 (75) 96 12/08/17 07:00 62 12/08/17 05:00 59 12/08/17 04:00 61 12/08/17 03:00 98.4 72 16 88/63 (71) 97 12/08/17 03:00 72 12/08/17 02:00 67 12/08/17 01:00 62 12/07/17 21:15 98.4 71 18 108/69 (82) 96 12/07/17 17:41 94 Room Air 12/07/17 15:57 98.0 69 18 116/74 (88) 95 I/O 12/07/17 12/07/17 12/07/17 12/08/17 12/08/17 12/08/17 07:00 15:00 23:00 07:00 15:00 23:00 Intake Total 480 ml Balance 480 ml Intake Oral 480 ml # Voids 4 Physical Exam GENERAL: IN NAD SKIN: Warm and dry. HEAD: Normocephalic. EYES: No scleral icterus. No injection or drainage. NECK: Supple, trachea midline. No JVD or lymphadenopathy. CARDIOVASCULAR: Regular rate and rhythm without murmurs, gallops, or rubs. RESPIRATORY: Breath sounds equal bilaterally. No accessory muscle use. GASTROINTESTINAL: Abdomen soft, non-tender, nondistended. MUSCULOSKELETAL: No cyanosis, or edema. Groin stable Laboratory Laboratory Tests Test 12/08/17 05:48 Triglycerides Level 130 MG/DL Cholesterol Level 248 MG/DL LDL Cholesterol 185 MG/DL HDL Cholesterol 36.6 MG/DL Cholesterol/HDL Ratio 6.77 RATIO Assessment and Plan Problem List: (1) Unstable angina ICD Codes: I20.0 - Unstable angina (2) Abnormal nuclear stress test ICD Codes: R94.39 - Abnormal result of other cardiovascular function study (3) HTN (hypertension) ICD Codes: I10 - Essential (primary) hypertension Assessment and Plan No recurrent CP. Cath with patent cors and nl LV fx. BP better controlled. Groin stable. DC home. Will schedule outpt f/u. The patient will be monitoring her BP at home in the meantime. Ashlyn Collins MD Dec 08, 2017 13:17
--- NOTE | 2017-12-08 15:39 | MA ---
cc: Ashlyn Collins MD DATE: 12/07/2017 INDICATIONS: Unstable angina, class 3 angina, intermediate probability nuclear myocardial perfusion study. PROCEDURES PERFORMED: 1. Retrograde left heart catheterization with left ventriculography and selective coronary angiography. 2. Moderate sedation. ACCESS SITE: Right femoral artery. EQUIPMENT USED: Modified coronary catheters. MEDICATIONS: Versed IV, fentanyl IV. CONTRAST: Omnipaque, 80 mL COMPLICATIONS: None. BLOOD LOSS: Less than 10 mL METHOD OF HEMOSTASIS: Manual compression. RESULTS HEMODYNAMICS: Heart rate 76 beats per minute. Left end diastolic pressure 7 mmHg. Left ventricle 100/7 Aorta 100/56/71. LEFT VENTRICULOGRAPHY: Left ventricular ejection fraction 60%. Wall motion normal. No mitral regurgitation. CORONARY ANGIOGRAM: The left main coronary patent. Left anterior descending is patent. D1 patent. Left circumflex artery patent. OM1 patent. Right coronary artery is a dominant vessel, which is patent. PDA patent. PLV patent. Right coronary artery has an anterior takeoff. DIAGNOSES: 1. Widely patent coronary arteries. 2. Preserved left ventricular systolic function. DISPOSITION Mrs. Foote can be reassured about her cardiac status. Her study showed widely patent coronary arteries and preserved left ventricular function. She will be monitored on telemetry and, if stable, will be discharged home later today. She will be seen back in followup in our office after discharge. Ashlyn Collins MD OQ/LC/ , 05:22 PM , 05:39 PM MTDAntoine
== END 2017-12-08 10:37 | disposition home or self-care (01) ==
LOC: NEDAMB 15:49 → NEDA 18:35 → NEPHCDU 20:07 → HCIS 12-07 17:27
PROVIDERS: ADMIT Hospitalist; ATTEND Hospitalist
DX: R07.89 Other chest pain (principal); I10 Essential (primary) hypertension; K21.9 Gastro-esophageal reflux disease without esophagitis; F41.9 Anxiety disorder, unspecified; I20.0 Unstable angina; F32.9 Major depressive disorder, single episode, unspecified; R94.31 Abnormal electrocardiogram [ECG] [EKG]; Z79.899 Other long term (current) drug therapy; Z87.891 Personal history of nicotine dependence
CPT/HCPCS: 71046; 78452; 80053; 80061; 82550; 83690; 83735; 84484; 85025; 85610; 85730; 93005; 93017; 93458; 96360; 99152; 99153; 99285; A9502; C1769; C1893; G0378; J1644; J2250; J3010; J7030; Q9967